=== PATIENT | male | born 1970 | race Caucasian/White ===

== ENCOUNTER → 2020-04-15 18:01 | Outpatient (CLI) | payer BC, SELFPAY ==
[2020-04-15 18:38] LABS: Basophils # 0.1 K/mm3 (0-0.2); Basophils % 1.3 % (0.1-2.0); Eosinophils # 0.2 K/mm3 (0.0-0.4); Eosinophils % 2.7 % (0.1-12.0); Hematocrit 45.8 % (42.0-52.0); Hemoglobin 15.5 g/dL (14.1-18.0); Lymphocytes # 2.5 K/mm3 (0.7-4.5); Lymphocytes % 37.1 % (10-50); Mean Corpuscular HGB Conc 33.9 g/dL (31.8-35.4); Mean Corpuscular Volume 91.4 fl (80-94); Mean Platelet Volume 9.2 fl (7.4-10.4); Monocytes # 0.5 K/mm3 (0.1-1.0); Monocytes % 7.9 % (1.7-9.3); Neutrophils # 3.4 K/mm3 (1.8-7.8); Neutrophils % 50.9 % (37.0-80.0); Platelet Count 197 K/mm3 (142-424); Red Blood Count 5.01 M/mm3 (4.60-6.20); Red Cell Distribution Width 12.3 % (11.5-17.5); White Blood Count 6.6 K/mm3 (4.8-10.8)
[2020-04-15 19:19] LABS: Prostate Specific Ag Screen 0.2 ng/ml (0.0-4.0)
[2020-04-21 03:08] LABS: Testosterone, Total, LC/MS 154.1 ng/dL (264.0-916.0); Testosterone,Free 2.4 pg/mL (7.2-24.0)
== END ==
PROVIDERS: Visit Provider Family Medicine
DX: E34.9 Endocrine disorder, unspecified (principal); Z12.5 Encounter for screening for malignant neoplasm of prostate
CPT/HCPCS: 84402; 84403; 85025; G0103

== ENCOUNTER 2025-03-11 10:00 | Outpatient (CLI) | payer OTHER, SELFPAY ==
[2025-03-11 18:35] LABS: Hematocrit 47.5 % (42.0-52.0); Hemoglobin 15.8 g/dL (14.1-18.0); Immature Granulocytes % 0.2 %; Mean Corpuscular HGB Conc 33.3 g/dL (31.8-35.4); Mean Corpuscular Hemoglobin 30.6 pg (27.0-31.2); Mean Corpuscular Volume 91.9 fl (80-94); Nucleated Red Blood Cells % 0 %; Platelet Count 213 K/mm3 (142-424); Red Blood Count 5.17 M/mm3 (4.60-6.20); Red Cell Distribution Width-SD 46.6 fL; White Blood Count 6.2 K/mm3 (4.8-10.8)
[2025-03-11 19:32] LABS: Alanine Aminotransferase 27 U/L (12-78); Albumin Level 3.5 g/dl (3.5-5.0); Albumin/Globulin Ratio 0.9 (1.1-1.8); Alkaline Phosphatase 65 U/L (38-126); Anion Gap 9.0 mEq/L (5-15); Aspartate Amino Transferase 70 U/L (17-59); Bilirubin,Total 0.9 mg/dl (0.2-1.3); Blood Urea Nitrogen 16 mg/dl (9-20); Calcium 9.4 mg/dl (8.4-10.2); Carbon Dioxide 29 mmol/L (22.0-30.0); Chloride 100 mmol/L (98-107); Cholesterol 140 mg/dl (140-200); Creatinine,Serum 1.20 mg/dl (0.66-1.25); Estimated Glomerular Filt Rate 63 ml/min (>60); GFR (African American) 76 ML/MIN (>60); Globulin 4.0 g/dL (1.3-3.2); Glucose 93 mg/dl (74-100); HDL Cholesterol 42 mg/dl (40-60); Potassium 5.0 mmoL/L (3.5-5.1); Sodium 133 mmol/L (136-145); Total Protein,Serum 7.5 g/dl (6.3-8.2); Triglycerides 73 mg/dl (30-150)
[2025-03-11 20:25] LABS: Hepatitis C Ab Qual. W/ RFX NEGATIVE (Negative)
--- OUTSIDE RECORDS SUMMARY | 2025-03-12 13:46 | XMS_ITS | Clinical Summary ---
Author Organization [facility] Address [address] [place] [address] Care Team Providers Care General Supervisor Name Role Phone Pcp, No Primary Care Provider [phone] Source Comments This information has been disclosed to you from confidential records protectedfrom disclosure by state law. You shall make no further disclosure of thisinformation without the specific, written, and informed release of theindividual to whom it pertains, or as otherwise permitted by law. A generalauthorization for the release of medical or other information is not sufficientfor the purposes of therelease of HIV test results or diagnoses. [id number] Allergies No known active allergies Medications traZODone (DESYREL) 50 MG tablet Take 1 tablet (50 mg total) by mouth at bedtime. 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 No 10/17 Assistance needed for: Not on file 3 Yearly Questionnaire Answer Date Record ed Do you need any assistance w ith obtaining housing, meals, medication, transportation or medical equipment? No 10/17 Assistance needed for: Not on file 3 Yearly Questionnaire Answer Date Record ed Do you need any assistance w ith obtaining housing, meals, medication, transportation or medical equipment? No 10/17 Assistance needed for: Not on file 3 Sex and Gender Information Value Date Recorded Sex Assigned at Male 11/12/2022 10:37 AM EDT Legal Sex Male 6:40 PM EST Gender Identity Male 11/12/2022 10:37 AM EDT Sexual Orientation Straight 11/12/2022 10 :37 AM EDT Last Filed Vital Signs Vital Sign Reading Time Taken Comments Blood Pressure - - Pulse - - Temperature - - Respiratory Rate - - Oxygen Saturation - - Inhaled Oxygen Concentration - - Weight 65.8 kg (145 lb) 12/26/2022 10:55 AM EDT Height 175.3 cm (5' 9 ) 12/26/2022 10:55 AM EDT Body Mass Index 21.41 12/26/2022 10:55 AM EDT Plan of Treatment Health Maintenance Due Date Last Done Comments Abnormal Colonoscopy Follow Up 1968 Hepatitis C Screening (MyChart) 1968 Alcohol Misuse Screening 1986 HIV Screening 1986 Immunization: DTaP/Tdap/Td (1 - Tdap) 1987 Immunization: Hepatitis B (1 of 3 - 19+ 3-dose series) 1987 Immunization: Pneumococcal (1 of 2 - PCV) 1987 Cologuard (FIT-DNA) 2013 Colonoscopy 2013 Colorectal Cancer Screening (MyChart) 2013 Stool Testing (gFOBT) 2013 Immunization: Zoster (1 of 2) 2018 Lung Cancer Screening 2018 Depression Screening 10/18/2023 10/17/2022 Immunization: COVID-19 ( season) 2025 06/23/2020, 05/26/2020 Immunization: Influenza (MyChart) (#1) 2025 Insurance [employer] [place] Member Subscriber Plan / Payer (Ef fective 2022-Present) Name:Cecilio Juarez Relation to Subscriber:Self Name:Cecilio Juarez Payer ID:[id number] Group ID:Not on file Type:Work Comp Address: [place] [address] [address] [id number] Care Teams General Supervisor Relationship Specialty Start Date End Date Pcp, No [address] [place], [place] [id number] PCP - General 10/10/22
--- OUTSIDE RECORDS SUMMARY | 2025-03-12 13:46 | XMS_ITS | Clinical Summary ---
Author Organization [facility] Address [address] [place] [address] Care Team Providers Care Bisque Kiln Placer Name Role Phone Richard Boyle MD Unavailable [phone] Eder Sarabia MD Primary Care Provider [phone] Liz Vallejo NP Unavailable Unavailable Allergies No known active allergies Medications albuterol (PROAIR HFA) 90 mcg/actuation HFA Aerosol InhalerIndicati ons:Wheezing Take 1-2 Puffs by inhalation every 4 hours as needed (wheeze). 1 Inhaler 5 7 Active Additional Information Patient not taking.Reported on 01/29/2023 sildenafil (VIAGRA) 50 mg Tablet Take 1 Tab by mouth as needed for Erectile Dysfunction. 15 Tab 3 7 Active Additional Information Patient not taking.Reported on 01/29/2023 sildenafil (VIAGRA) 50 mg Tablet Take 1 Tab by mouth as needed for Erectile Dysfunction. 4 Tab 0 7 Active Additional Information Patient not taking.Reported on 08/23/2021 testosterone (AXIRON) 30 mg/actuation (1.5 mL) TD SlPm Use 3 mL as instructed daily. Apply 30 mg topically to each axilla (total of 60 mg) daily 90 mL 3 7 Active Additional Information Patient not taking.Reported on 08/23/2021 traZODone (DESYREL) 50 mg tabletIndicatio ns:Primary insomnia Take 0.5-1 Tabs by mouth nightly. 30 Tab 2 8 Active testosterone cypionate (DEPO-TESTOTERO NE CYPIONATE) 200 mg/mL injection every 14 days. 2 Active ondansetron (ZOFRAN) 4 mg tablet Take 1 Tablet (4 mg total) by mouth every 6 hours as needed for Nausea. 20 Tablet 2 Active diclofenac (VOLTAREN) 75 mg EC tablet Take 1 Tablet (75 mg) by mouth 2 times daily. 60 Tablet 3 Active Active Problems Problem Noted Date Diagnosed Date Rupture long head biceps tendon, right, initial encounter 03/13/2023 Traumatic complete tear of r ight rotator cuff, initial encounter 08/08/2021 Overview (08/08/2021): Added automatically from request for surgery [id number] Strain of right shoulder, initial encounter 07/13 Overview (08/08/2021): Added automatically from request for surgery [id number] Right shoulder pain, unspecified chronicity 07/13 Overview (08/08/2021): Added automatically from request for surgery [id number] Weakness of shoulder 08/08/2021 Overview (08/08/2021): Added automatically from request for surgery [id number] Glenoid labral tear, right, subsequent encounter 08/08/2021 Overview (08/08/2021): Added automatically from request for surgery [id number] Insomnia 04/19/2012 RLS (restless legs syndrome) 04/19/2012 Bronchitis due to tobacco use 04/19/2012 Current smoker 04/19/2012 Encounter for sterilization 08/14/2010 Overview (08/04/2016): Replaced inactive diagnosis term via diagnosis import Family History Medical History Relation Name Comments Heart Problems Father Gene Relation Name Status Comments Brother 1 Alive Brother 2 Alive Brother 3 Alive Father Gene Mother Alive Social History Tobacco Use Types Packs/Day Years Used Date Smoking Tobacco: Every Day Cigarettes 1.5 30 Started: 10/17/2006 Smokeless Tobacco: Never Tobacco Cessation:Ready to Q uit: No; Counseling Given: Not Answered Alcohol Use Standard Drinks/Week Comments No 0 (1 standard drink = 0.6 oz pur e alcohol) Sex and Gender Information Value Date Recorded Sex Assigned at Male 08/17/2021 9:28 AM EDT Legal Sex Male 2:35 PM EST Gender Identity Male 08/17/2021 9:28 AM EDT Sexual Orientation Straight 08/17/2021 9: 28 AM EDT Last Filed Vital Signs Vital Sign Reading Time Taken Comments Blood Pressure 93/72 05/01/2023 12:30 PM EST Pulse 76 05/01/2023 12:30 PM EST Temperature 36.4 C (97.5 F) 05/01/2023 12:30 PM EST Respiratory Rate 16 05/01/2023 12:30 PM EST Oxygen Saturation 100% 05/01/2023 12:30 PM EST Inhaled Oxygen Concentration - - Weight 65.8 kg (145 lb) 05/01/2023 7:59 AM EST Height 175.3 cm (5' 9 ) 05/01/2023 7:59 AM EST Body Mass Index 21.41 05/01/2023 7:59 AM EST Plan of Treatment Health Maintenance Due Date Last Done Comments Cologuard 1968 Colonoscopy 1968 Colorectal Cancer Screening 1968 FIT 1968 Tobacco Cessation Counseling 1980 Pneumococcal Vaccine: 50+ Ye ars (1 of 2 - PCV) 1987 Tetanus Vaccination (Every 1 0 Years) 04/21/2018 04/21/2008 Lung Cancer Screening 2018 Zoster-RZV(Shingrix) (1 of 2) 2018 Lipid Screening 04/21/2019 04/21/2014, 04/21/2014 [facility] PT Plan of Care 12/14/2021 09/15/2021 Depression Screening 05/14/2024 11/22/2016 COVID-19 Vaccine (3 - 2024-2 6 season) 2025 06/23/2020, 05/26/2020 Influenza Vaccination (#1) 2025 Influenza Vaccination (Yearly) Discontinued 0 06/15/2017 (Patient/Parent/Guardian Counseled and Declines), 04/21/2014 (Patient/Parent/Guardian Counseled and Declines) Medical Devices Implanted Type Area Site Technician Device Identifier Shelf Expiration Date Model / Serial / Lot Biocomp Kntls Swvlck 5.5x19.1mm - [id number] Implanted:Qty : 1 on 08/30/2021 by Richard Boyle MD at [facility] Right: Shoulder * [employer] 04/12/2025 AR-2323KB CC / / [id number] Biocomp Swi Lock 5.5 X 19.1mm - [id number] Implanted:Qty : 1 on 08/30/2021 by Richard Boyle MD at [facility] Right: Shoulder * [employer] 01/11/2025 AR-2323BC C / / [id number] Anchr Peek Swvlk Teno 7mm - [id number] Implanted:Qty : 1 on 05/01/2023 by Richard Boyle MD at [facility] Right: Shoulder [employer] [id number] 07/11/2025 AR-1662PS L-7 / / [id number] Biocomp Swi Lock 5.5 X 19.1mm - [id number] Implanted:Qty : 1 on 05/01/2023 by Richard Boyle MD at [facility] Right: Shoulder [employer] [id number] 10/11/2026 AR-2323BC C / / [id number] Biocomp Swi Lock 5.5 X 19.1mm - [id number] Implanted:Qty : 1 on 05/01/2023 by Richard Boyle MD at [facility] Right: Shoulder [employer] [id number] 10/11/2026 AR-2323BC C / / [id number] Swvllock Bc Knlss 5.5mm Bc - [id number] Implanted:Qty : 1 on 05/01/2023 by Richard Boyle MD at [facility] Right: Shoulder [employer] [id number] 11/10/2026 AR-2323KB CC / / [id number] Swvllock Bc Knlss 5.5mm Bc - [id number] Implanted:Qty : 1 on 05/01/2023 by Richard Boyle MD at [facility] Right: Shoulder [employer] [id number] 11/10/2026 AR-2323KB CC / / [id number] - [id number] Implanted:Qty : 1 on 05/01/2023 by Richard Boyle MD at [facility] Right: Shoulder [id number] 07/12/2024 ABS- / [id number] / [id number] Procedures Procedure Name Priority Date/Time Associated Diagnosis Comments [facility] PT PLAN OF CARE CERT/RE-CERT Routine 09/15/2021 4:36 PM EDT LIPID PROFILE Routine 04/21/2014 9:08 AM EST Routine general medical examination at a health care facility from Last 3 Months or Most Recently Relevant to Health Maintenance Results * (ABNORMAL) LIPID PROFILE (04/21/2014 9:08 AM EST) Chol/HDL Ratio 4.6 0 - 5 TC E XTERNAL LAB Cholesterol 169 125 - 199 mg/dL [facility] EX[facility] Comment: TOTAL CHOLESTEROL INTERPRETATION: Less than 200 mg/dL Desireable 200-239 mg/dL Borderline Greater or Equal to 240 mg/dL High LDL Calculated 103(H) 0 - 100 mg/dL [facility] Comment: LDL CHOLESTEROL INTERPRETATION: Less than 100 mg/dL Optimal 100-129 mg/dL Near optimal/above optimal 130-159 mg/dL Borderline High 160-189 mg/dL High Greater or Equal to 190 mg/dL Very High HDL 37(L) 40 - 180 mg/dL [facility] Comment: HDL CHOLESTEROL INTERPRETATION: Less than 40 mg/dL Low Greater than 60 mg/dL Desirable Triglycerides 147 0 - 150 mg/dL [facility] Comment: TOTAL TRIGLYCERIDE INTERPRETATION: Less than 150 mg/dL Normal 150-199 mg/dL Borderline HIgh 200-499 mg/dL High Greater or Equal to 500 mg/dL Very High Plasma 04/21/2014 9:08 AM EST 04/21/2014 12:44 PM EST Narrative [facility] - 04/21/2014 1:34 PM EST Has the patient fasted?->Yes us Marcio Abdi MD CHEMISTRY ORDERABLES Final Re sult [facility] [address] [place] [address], [facility] from Last 3 Months or Most Recently Relevant to Health Maintenance Insurance OTHER EM [facility] [place] Care Teams Bisque Kiln Placer Relationship Specialty Start Date End Date Eder Sarabia MD [address] [place] [address] PCP - General Family Medicine 08/17/21 [place] [address] [facility]. [address] [place] [address] Orthopedic Surgery 07/18/21 Liz Vallejo NP Nurse Practitioner Nurse Practitioner, Adult Health 11/05/22
--- OUTSIDE RECORDS SUMMARY | 2025-03-12 13:46 | XMS_ITS | Encounter Summary ---
Author Organization [facility] Address [address] [place] [address] Care Team Providers Care Civil Lawyer Name Role Phone Richard Boyle MD Unavailable [phone] Eder Sarabia MD Primary Care Provider [phone] Liz Vallejo COFFEE ROASTER Unavailable Unavailable Encounter Details Date Type Department Care Team (Late st Contact Info) Description 03/13/2023 Preop Surgical Orders [facility] Physicians - Orthopaedics & Sports Medicine, [place] [address] [place] [address] [place] [address] [place] [address] [facility] [place], [place] [id number] Social History Tobacco Use Types Packs/Day Years Used Date Smoking Tobacco: Light Smoker Cigarettes 1 30 Started: 10/17/2006 Smokeless Tobacco: Never Alcohol Use Standard Drinks/Week Comments No 0 (1 standard drink = 0.6 oz pur e alcohol) Sex and Gender Information Value Date Recorded Sex Assigned at Male 08/17/2021 9:28 AM EDT Legal Sex Male 2:35 PM EST Gender Identity Male 08/17/2021 9:28 AM EDT Sexual Orientation Straight 08/17/2021 9: 28 AM EDT documented as of this encounter Functional Status * Are you blind or do you have difficulty seeing, even when wearing glasses? Answer Date of Assessment Author No 08/30/2021 8:13 AM Timbo Lopez RN * Do you have serious difficulty walking or climbing stairs? Answer Date of Assessment Author No 08/30/2021 8:13 AM Timbo Lopez RN * Do you have difficulty dressing or bathing? Answer Date of Assessment Author No 08/30/2021 8:13 AM Timbo Lopez RN * Because of a physical, mental, or emotional condition, do you have difficulty doing errands alone such as a visiting a doctor's office or shopping? Answer Date of Assessment Author No 08/30/2021 8:13 AM Timbo Lopez RN documented as of this encounter Mental Status * Because of a physical, mental, or emotional condition, do you have serious difficulty concentrating, remembering, or making decisions? Answer Entry Date Author No 08/30/2021 8:13 AM Timbo Lopez RN documented in this encounter Plan of Treatment Not on file documented as of this encounter Visit Diagnoses Not on filedocumented in this encounter Additional Health Concerns Assessment Noted Time PHQ-9 Depression Total Score: 1 11/23/19 17 10:36 AM EDT documented as of this encounter Care Teams Civil Lawyer Relationship Specialty Start Date End Date Eder Sarabia MD [address] [place] [address] PCP - General Family Medicine 08/17/21 [place] [address] [facility] [address] [place] [address] Orthopedic Surgery 07/18/21 Liz Vallejo NP Nurse Practitioner Nurse Practitioner, Adult Health 11/05/22 documented as of this encounter
--- OUTSIDE RECORDS SUMMARY | 2025-03-12 13:46 | XMS_ITS | Clinical Summary ---
Author Organization [facility] [place] [address] Care Team Providers Care Hr Recruiter Name Role Phone Unavailable Primary Care Provider Unavailabl e Immunizations Immunization Administration Dates Next Due Moderna SARS-CoV-2 Vaccine 12+ Yrs (Light blue b order) 06/23/2020,05/26/2020 Social History Tobacco Use Types Packs/Day Years Used Date Smoking Tobacco: Never Assessed Sex and Gender Information Value Date Recorded Sex Assigned at Not on file Legal Sex Male 3:20 PM EST Gender Identity Not on file Sexual Orientation Not on file Plan of Treatment Health Maintenance Due Date Last Done Comments Annual Wellness Exam 1971 DTaP/TDaP/Td (1 - Tdap) 1987 Hepatitis B Vaccine (1 of 3 - 19+ 3-dose series) 1987 Cologuard 2013 Colon Cancer Screening 2013 Colonoscopy 2013 FIT 2013 Sigmoidoscopy 2013 Virtual Colonography 2013 Pneumococcal Vaccine 50+ (1 of 1 - PCV) 2018 Zoster (1 of 2) 2018 COVID-19 Vaccine (3 - 2024-2 6 season) 2025 06/23/2020, 05/26/2020 Influenza Vaccine (#1) 2025 Meningococcal B Vaccine Aged Out No l onger eligible based on patient's age to complete this topic
--- OUTSIDE RECORDS SUMMARY | 2025-03-12 13:46 | XMS_ITS | Encounter Summary ---
Author Organization [facility] Address [address] [place] [address] Care Team Providers Care Psychology Lecturer Name Role Phone Marcio Abdi MD Primary Care Provider Richard Palencia MD Unavailable [phone] Eder Sarabia MD Primary Care Provider [phone] Liz Vallejo OCULAR CARE TECHNICIAN Unavailable Unavailable Encounter Details Date Type Department Care Team (Late st Contact Info) Description 03/01/2012 Telephone [facility] Physicians - Primary Care, [address] [address] Marcio Abdi MD Social History Tobacco Use Types Packs/Day Years Used Date Smoking Tobacco: Every Day Cigarettes Alcohol Use Standard Drinks/Week Comments Yes 0 (1 standard drink = 0.6 oz pur e alcohol) socially Sex and Gender Information Value Date Recorded Sex Assigned at Male 08/17/2021 9:28 AM EDT Legal Sex Male 2:35 PM EST Gender Identity Male 08/17/2021 9:28 AM EDT Sexual Orientation Straight 08/17/2021 9: 28 AM EDT documented as of this encounter Plan of Treatment Not on file documented as of this encounter Visit Diagnoses Diagnosis Wheezing Sinusitis Unspecified sinusitis (chronic) Otitis Unspecified otitis media RLS (restless legs syndrome) Restless legs syndrome (RLS) documented in this encounter Care Teams Psychology Lecturer Relationship Specialty Start Date End Date Marcio Abdi MD PCP - General Internal Medicine 02/21/12 08/16/21 Eder Sarabia MD [address] [place] [address] PCP - General Family Medicine 08/17/21 [place] [address] [facility]. [address] [place] [address] Orthopedic Surgery 07/18/21 Liz Vallejo NP Nurse Practitioner Nurse Practitioner, Adult Health 11/05/22 documented as of this encounter
--- OUTSIDE RECORDS SUMMARY | 2025-03-12 13:46 | XMS_ITS | Encounter Summary ---
Author Organization [facility] Address [address] [place] [address] Care Team Providers Care Experience Specialist Name Role Phone Marcio Abdi MD Primary Care Provider Richard Palencia MD Unavailable [phone] Eder Sarabia MD Primary Care Provider [phone] Liz Vallejo AUTO BATTERY BUILDER Unavailable Unavailable Encounter Details Date Type Department Care Team (Late st Contact Info) Description 03/31/2014 Clinical Update [facility] Physicians - Primary Care, [address] [address] Uma Magaña RN Social History Tobacco Use Types Packs/Day Years [...] Diagnoses Not on filedocumented in this encounter Care Teams Experience Specialist Relationship Specialty Start Date End Date Marcio Abdi MD PCP - General Internal Medicine 02/21/12 08/16/21 Eder Sarabia MD [address] [id number] PCP - General Family Medicine 08/17/21 [place] [address] [facility]. [address] [place], [place] [id number] Orthopedic Surgery 07/18/21 Liz Vallejo NP Nurse Practitioner Nurse Practitioner, Adult Health 11/05/22 documented as of this encounter
[2025-03-13 05:21] LABS: Hepatitis B Surface Antigen Negative (Negative)
[2025-03-13 08:52] LABS: Testosterone,Total >1500 ng/dL (264-916)
== END 2025-03-11 23:59 | disposition home or self-care (01) ==
LOC: LAB.DROPOF 03-12 13:36
PROVIDERS: PCP Family Medicine; Visit Provider Family Medicine
DX: E34.9 Endocrine disorder, unspecified (principal); Z11.59 Encounter for screening for other viral diseases
CPT/HCPCS: 80053; 80061; 84403; 85025; 86803; 87340; 87389; G0103